=== PATIENT | female | born 1990 | race Caucasian/White ===

== ENCOUNTER → 2022-03-02 11:55 | Outpatient (CLI) | payer BC, SELFPAY ==
--- NOTE | 2022-03-02 12:08 | XR_ITS ---
FINAL REPORT CLINICAL HISTORY: BACK PAIN W/RADICULOPATHY FINDINGS: LUMBAR SPINE 5 views of the lumbar spine were obtained. There is no evidence of fracture or dislocation. The vertebral alignment is normal. There are mild degenerative changes with small osteophytes. No paraspinous soft tissue abnormalities identified. IMPRESSION: Mild degenerative change with no acute bony abnormality. Reviewed, Interpreted and Dictated by Tarun Streeter III, MD Transcribed by Estela Stevenson Authenticated and [facility]
== END ==
PROVIDERS: PCP Family Medicine; Visit Provider Family Medicine
DX: M54.16 Radiculopathy, lumbar region (principal)
CPT/HCPCS: 72110

== ENCOUNTER → 2022-03-29 07:30 | Outpatient (CLI) | payer BC, SELFPAY ==
--- NOTE | 2022-03-29 07:38 | MR_ITS ---
FINAL REPORT CLINICAL HISTORY: LUMBAR BACK PAIN WITH RADICULOPATHY. RIGHT LEG PAIN AND NUMBNESS. RIGHT SIDED LOW BACK PAIN. SYMPTOMS 1 MONTH. NO INJURY OR TRAUMA. FINDINGS: MRI LUMBAR SPINE W/O CONTRAST Multiplanar MR imaging of the lumbar spine was performed without contrast. On the sagittal T2-weighted images, disc degeneration is seen at several levels. There are several Schmorl's nodes. The vertebral alignment is normal. There is no evidence of fracture. The conus has an unremarkable appearance. T12-L1: No significant central canal stenosis or neural foraminal narrowing. L1-2: An annular disc bulge is present. No significant central canal stenosis or neural foraminal narrowing. L2-3: No significant central canal stenosis or neural foraminal narrowing. L3-4: An annular disc bulge is present. No significant central canal stenosis or neural foraminal narrowing. L4-5: An annular disc bulge is present. There is a small left foraminal disc protrusion and annular tear with mild bilateral neural foraminal narrowing. No significant central canal stenosis. L5-S1: An annular disc bulge is present. There is a central disc protrusion which contacts the S1 nerve roots. No significant central canal stenosis or neural foraminal narrowing. IMPRESSION: Multilevel disc degeneration and spondylosis. Small left foraminal disc protrusion and annular tear at L4-5 with mild bilateral neural narrowing. Central disc protrusion at L5-S1 which contacts the S1 nerve roots. Reviewed, Interpreted and Dictated by Tarun Streeter III, MD Transcribed by Estela Stevenson Authenticated and [facility]
== END ==
PROVIDERS: PCP Family Medicine; Visit Provider Physician Assistant
DX: M54.50 Low back pain, unspecified (principal); M54.16 Radiculopathy, lumbar region; R29.898 Other symptoms and signs involving the musculoskeletal system
CPT/HCPCS: 72148; 76376

== ENCOUNTER → 2022-05-15 10:26 | Outpatient (POV) | payer BC, SELFPAY ==
[2022-05-15 11:20] VITALS: BP 148/88; PULSE 80; RESP 18; O2SAT 100; BMI 30.2
--- NOTE | 2022-05-15 12:49 | EXP.PAIN.OV ---
HPI Data of Consult Patient: new to practice Consult date: 05/15/22 Requesting Physician: TAHIRA Magallanes Primary Care Provider: Alesha Concepcion MD Consult Narrative Reason for consult: Back pain History of present illness: Ms. Pelayo is a 31 year old female who presents today as a new patient. Patient is referred by Vikki Maddox PA-C. Thank you for the referral. Patient presents today with worsening low back pain that radiates to RLE. This started around February 20, 2022. Denies any falls or traumas. She does work at [employer] where she consistently lifts 20-30lb items. She has been working for [employer] for about 7-8 years now. She cannot tolerate any prolonged sitting, standing, and walking. She has trouble getting up from a sitting position. She did Physical therapy for about 3-4weeks where she went twice a week. She says that this was helping some. She did see NSx at who is recommending injections and PT. She rates her pain as 8/10. She has tried muscle relaxers and OTC meds that were providing minimal relief. Chavo and drug screen appropriate. CC: TAHIRA Magallanes [facility] Disclaimer: The information contained in this section may have been updated after the patient was seen, as this information can be updated by other users. Medical History (Updated 05/15/22 @ 12:55 by TAHIRA Magallanes) DDD (degenerative disc disease), lumbar Social History (Updated 05/15/22 @ 11:24 by Mena North RN) Smoking Status: Current every day smoker alcohol intake: never current occupational status: employed and unemployed Travel in the last 8 weeks: None Review of Systems Review of Systems Review of systems (narrative): Review of Systems: General: No recent weight changes, no fever, no sleep disturbances Respiratory: No cough, no shortness of air, no recurring pulmonary infections Cardiovascular/peripheral vascular: No chest pain, no palpitations, no edema, no shortness of breath Gastrointestinal: No new onset incontinence, normal bowel movements reported Genitourinary: No new onset incontinence Musculoskeletal: Low back pain, right hip pain Psychiatric: [Normal mood/affect] Neurological: [Denies weakness in extremities], [denies balance issues] Meds Home Medications and Allergies Home Medications Medication Instructions Recorded Confirmed Type cyclobenzaprine 5 mg tablet 5 mg PO TID BACK PAIN 05/15/22 05/15/22 History New Prescriptions to Start Prescriptions: Objective Vital signs: Pulse Resp BP Pulse Ox 80 18 148/88 H 100 05/15/22 11:20 05/15/22 11:20 05/15/22 11:20 05/15/22 11:20 Narrative: Physical Exam: General: Alert and oriented x3, no acute distress, pleasant and cooperative Lungs: Respirations even and unlabored, symmetrical chest expansion Eyes: PERRL Musculoskeletal: Right SI is positive for SANDRITA, Sherry's, Fred's, Gaenslen's, compression, and distraction. Neurological: Speech clear, no gross sensory deficit Additional findings Additional findings: FINAL REPORT CLINICAL HISTORY: LUMBAR BACK PAIN WITH RADICULOPATHY. RIGHT LEG PAIN AND NUMBNESS. RIGHT SIDED LOW BACK PAIN. SYMPTOMS 1 MONTH. NO INJURY OR TRAUMA. FINDINGS: MRI LUMBAR SPINE W/O CONTRAST? Multiplanar MR imaging of the lumbar spine was performed without contrast. On the sagittal T2-weighted images, disc degeneration is seen at several levels. There are several Schmorl's nodes. ? The vertebral alignment is normal.? There is no evidence of fracture.? The conus has an unremarkable appearance.? T12-L1:? No significant central canal stenosis or neural foraminal narrowing.? L1-2:? An annular disc bulge is present.? No significant central canal stenosis or neural foraminal narrowing.? L2-3: No significant central canal stenosis or neural foraminal narrowing.? L3-4:? An annular disc bulge is present.? No significant central canal stenosis or neural foraminal narrowing.? L4-5:? An annular disc bulge is
== END | disposition home or self-care (01) ==
PROVIDERS: PCP Family Medicine; Visit Provider Student in an Organized Health Care Education/Training Program
DX: M46.1 Sacroiliitis, not elsewhere classified (principal); M54.50 Low back pain, unspecified
CPT/HCPCS: 99202; G0463

== ENCOUNTER 2022-05-26 08:30 | Day surgery (SDC) | payer BC, SELFPAY ==
[2022-05-26 08:50] VITALS: BP 147/84; PULSE 87; RESP 18; TEMP 36.8; O2SAT 99; BMI 29.9
[2022-05-26 08:55] VITALS: BP 147/61; PULSE 91; RESP 18; O2SAT 98
--- NOTE | 2022-05-26 09:14 | P.PCN_ITS ---
Procedure Date: 05/26/22 Time: 09:00 Anesthesiologist:: Aaron Cabrales CRNA Complications:: None Pre-procedure Diagnosis:: Right sacroiliitis Post-procedure Diagnosis:: Same. Indications for Procedure:: Very pleasant 31-year-old female comes our clinic today with painful right posterior hip. Low right lumbar pain. Patient has extreme point tenderness over the right SI joint. She rates pain 8/10. Procedure Details:: Procedure: Right sacroliliac joint injection under fluoroscopy Informed consent was obtained and the risk and benefits of the procedure were explained to the patient.~ The patient was taken to the procedure room and marleni nvasive monitors were placed including noninvasive blood pressure cuff and pulse oximeter.~ The patient was placed prone on the procedure table.~ The~ right hip was cleansed using Betadine as a cleansing solution.~ C-arm fluorosocpy was used to view the right SI joint.~ The skin and subcutaneous tissues were anesthetized using Lidocaine 1.5% and a 25-gauge needle.~ After this, a 22-gauge spinal ne edle was inserted under fluoroscopic guidance into the inferior aspect of the right SI joint.~ Omnipaque dye was injected and a good spread was seen throughout the joint.~ After this, approximately 5 mL of bupivacaine 0.25% and Depo-Medrol 40 mg was incrementally injected into the sacroiliac joint.~ The patient tolerated the procedure well with no complications.~ The patient was observed in the Pain Clinic, then discharged home neurologically intact.~ Plan and Disposition:: Patient was discharged without incident.
[2022-05-26 09:15] VITALS: BP 134/85; PULSE 75; RESP 20
== END 2022-05-26 09:15 | disposition home or self-care (01) ==
PROVIDERS: PCP Family Medicine; Visit Provider Nurse Anesthetist, Certified Registered
DX: M46.1 Sacroiliitis, not elsewhere classified (principal)
CPT/HCPCS: 27096; G0260; J1040

== ENCOUNTER → 2022-06-14 09:33 | Outpatient (POV) | payer BC, SELFPAY ==
--- NOTE | 2022-06-14 10:03 | A.OFFVIS_ITS ---
[facility] Pain Management SOAP Note Subjective:: Patient is a pleasant 31-year-old who presents today for follow-up of right SI injection on 05/26/2022. We are currently treating the patient for low back pain, lumbar radiculopathy symptoms, sacroiliitis. Patient rates her pain today a 3 out of 10. Patient states that she has had at least 90% improvement following this injection and feels like it still continuing to provide relief. Patient states she has been able to increase her activity with decreased pain. Patient does work at [employer] and is currently off her short-term disability due to her pain symptoms however she is stating that she is ready to go back. Patient was scheduled for physical therapy however she states following this injection she has not needed to go. Patient is not on any scheduled medications. Her Chavo is [phone]. Its been reviewed and appropriate. Review of Systems: General: No recent weight changes, no fever, no sleep disturbances Respiratory: No cough, no shortness of air, no recurring pulmonary infections Cardiovascular/peripheral vascular: No chest pain, no palpitations, no edema, no shortness of breath Gastrointestinal: No new onset incontinence, normal bowel movements reported Genitourinary: No new onset incontinence Musculoskeletal: Low back pain Psychiatric: [Normal mood/affect] Neurological: [Denies weakness in extremities], [denies balance issues] Objective:: Physical Exam: General: Alert and oriented x3, no acute distress, pleasant and cooperative Lungs: Respirations even and unlabored, symmetrical chest expansion Eyes: PERRL Musculoskeletal: Flexion and extension of lumbar [spine] somewhat guarded secondary to pain, [antalgic gait noted] Neurological: Speech clear, no gross sensory deficit ORT score updated with minimal risk Assessment:: Low back pain with lumbar radiculopathy symptoms, sacroiliitis Plan:: Patient has had significant improvement of her pain symptoms following her SI injection and does not require any additional injective therapy at this time. Patient will return to clinic in 3 months for reevaluation of symptoms and follow-up. Patient has been instructed to contact the clinic with any concerns before the next appointment. Dr. Tolentino has reviewed this note and agrees with this plan of care. This note was dictated using voice recognition software and make contain errors or omissions. [facility] Disclaimer: The information contained in this section may have been updated after the patient was seen, as this information can be updated by other users. Medical History DDD (degenerative disc disease), lumbar Family History (Updated 05/26/22 @ 09:05 by Trinidad Butler RN) Other No significant family history Social History Smoking Status: Current every day smoker alcohol intake: never current occupational status: employed Travel in the last 8 weeks: None
[2022-06-14 10:06] VITALS: BP 154/95; PULSE 97; RESP 18; O2SAT 97; BMI 29.9
== END ==
PROVIDERS: PCP Family Medicine; Visit Provider Nurse Practitioner Family
DX: M46.1 Sacroiliitis, not elsewhere classified (principal); M54.50 Low back pain, unspecified; M54.16 Radiculopathy, lumbar region
CPT/HCPCS: 99212; G0463

== ENCOUNTER 2023-07-20 17:48 | Emergency (ER) | payer BC, SELFPAY ==
[2023-07-20 18:45] VITALS: BP 142/91; PULSE 81; RESP 20; TEMP 36.8; O2SAT 98; BMI 31.6
--- NOTE | 2023-07-20 18:51 | EXP.UTC ---
Discharge Plan Disposition Patient Disposition: Home, Self-Care Condition: Good Prescriptions Prescriptions: New sulfamethoxazole-trimethoprim [Bactrim DS] 800-160 mg Tablet 1 tab PO BID Qty: 20 0RF cephalexin 500 mg capsule 500 mg PO QID Qty: 40 0RF mupirocin 2 % ointment 1 applic topical TID 7 Days Qty: 15 0RF Referrals Follow up/Referrals: Vikki Maddox PA [Primary Care Provider] - See instructions Activity Restrictions/Add. Instructions Additional Instructions/Restrictions: Drink plenty of fluids. Take tylenol or ibuprofen for pain or fever. Take the medications as directed. Follow up with your regular doctor. GO TO THE ER FOR ANY WORSENING SYMPTOMS Apply warm wet compresses to the affected sites three or four times per day for 15 minutes as tolerated. Take the antibiotics as directed. Follow up with your regular doctor within the next 48 to 72 hours for a wound recheck. GO TO THE ER FOR ANY WORSENING SYMPTOMS OR CONCERNS Clinical Impressions Clinical Impression: Strep throat, Cellulitis and abscess of neck Instructions Patient Instructions: Strep Throat, [place], DI for Strep Throat Discharge ED Provider: Abiel Hunter [facility] General Stated complaint: sore throat Time Seen by Provider: 07/20/23 18:51 History of Present Illness Provider Complaint: she states that she has had sore throat, malaise, fever, body aches, and a dry cough for the past 2 days. Related Data Previous Rx's Medication Instructions Recorded cephalexin 500 mg capsule 500 mg PO QID #40 caps 07/20/23 mupirocin 2 % topical ointment 1 applic topical TID 7 days #15 07/20/23 grams sulfamethoxazole 800 1 tab PO BID #20 tabs 07/20/23 mg-trimethoprim 160 mg tablet (Bactrim DS) Allergies Allergy/AdvReac Type Severity Reaction Status Date / Time No Known Allergies Allergy Verified 05/26/22 09:05 [facility] Disclaimer: The information contained in this section may have been updated after the patient was seen, as this information can be updated by other users. Medical History (Updated 07/20/23 @ 19:08 by Abiel Hunter APRN) DDD (degenerative disc disease), lumbar Family History (Updated 05/26/22 @ 09:05 by Trinidad Butler RN) Other No significant family history Social History Smoking Status: Current every day smoker alcohol intake: never current occupational status: unemployed Travel in the last 8 weeks: None ROS Obtained: Yes All systems reviewed & no additional complaints except as documented Constitutional Constitutional: Reports chills and Reports fever(s) Eyes Eyes: Denies eye discharge ENT Ears, Nose, Mouth, and Throat: Reports as per HPI Cardiovascular Cardiovascular: Denies chest pain Respiratory Respiratory: Denies chest congestion and Reports cough Gastrointestinal Gastrointestingal: Reports nausea; Denies abdominal pain, constipation, cramping, diarrhea or vomiting Musculoskeletal Musculoskeletal: Denies arthralgias Integumentary/Breasts Skin/Breast: Denies rash Neurologic Neurologic: Denies paresthesias Physical Exam General General appearance: alert and in no apparent distress Head Head exam: atraumatic, normocephalic and normal inspection Eye Eye exam: Present normal appearance, PERRL and EOMI ENT ENT exam: Present mucous membranes moist and normal external ear exam Expanded ENT Exam TM/Canal exam: Bilateral TM: erythema and bulging Nose exam: Absent sinus tenderness Mouth exam: Present normal external inspection; Absent drooling Teeth exam: Present normal inspection Throat exam: Present tonsillar erythema, tonsillomegaly and tonsillar exudate Neck Neck exam: Present normal inspection, full ROM and trachea midline; Absent tenderness, meningismus or lymphadenopathy Chest Chest inspection: Present normal inspection and symmetric chest wall rise; Absent tenderness Respiratory Respiratory exam: Present normal lung sounds bilaterally; Absent respiratory distress, wheezes, stridor or accessory muscle use Cardiovascular Cardiovascular exam: Present regular rate and normal rhythm; Absent systolic murmur or diastolic murmur Abdominal Exam Abdominal exam: Present soft and normal bowel sounds; Absent distention, tenderness, guarding, rebound or rigidity Extremities Exam Extremities exam: Present normal inspection and normal capillary refill; Absent calf tenderness Back Exam Back exam: Present normal inspection and full ROM; Absent tenderness, CVA tenderness (R) or CVA tenderness (L) Neurological Exam Neurological exam: Present alert, oriented X3 and CN II-XII intact Psychiatric Psychiatric exam: Present normal affect and normal mood Skin Skin exam: Present warm, dry, intact and normal color Medical Decision Making Medical Records Medical records reviewed: No I reviewed the patient's medical records. Chavo Inquiry Pt receiving controlled substance: No Lab Data Lab results reviewed: Yes I reviewed the patient's lab results.
[2023-07-20 18:59] LABS: UTC Strep Screen (Rapid) Positive (Negative)
[2023-07-20 19:09] VITALS: BP 142/91; PULSE 81; RESP 20; TEMP 36.8; O2SAT 98
== END 2023-07-20 19:14 | disposition home or self-care (01) ==
PROVIDERS: Emergency Provider Nurse Practitioner Family; PCP Physician Assistant
DX: J02.0 Streptococcal pharyngitis (principal); R07.0 Pain in throat; L02.11 Cutaneous abscess of neck; B95.0 Streptococcus, group A, as the cause of diseases classified elsewhere; L03.211 Cellulitis of face; R50.9 Fever, unspecified; R05.9 Cough, unspecified; F17.210 Nicotine dependence, cigarettes, uncomplicated
CPT/HCPCS: 87070; 87205; 87880; 99204; 99212; G0463